=== PATIENT | male | born 1995 | race Two or more races ===

== ENCOUNTER 2024-02-09 15:00 | Emergency (ER) | payer SELFPAY ==
[~2024-02-09] VITALS: Ht 172.7 cm; Wt 89.4 kg
[2024-02-09] MEDS ORDERED: IBUP-1456 PO (18:59)
[2024-02-09] MEDS: KETOROLAC TROMETH 60MG/2ML VIAL IM ONE (19:22)
[2024-02-09 20:15] VITALS: BP 129/86; PULSE 78; RESP 19; TEMP 97.6; O2SAT 98
== END 2024-02-09 20:17 | disposition home or self-care (01) ==
LOC: ER 15:00
DX: S62.390A Other fracture of second metacarpal bone, right hand, initial encounter for closed fracture (principal); Z79.1 Long term (current) use of non-steroidal anti-inflammatories (NSAID); W51.XXXA Accidental striking against or bumped into by another person, initial encounter; Y93.89 Activity, other specified; Y92.89 Other specified places as the place of occurrence of the external cause; Y99.8 Other external cause status
CPT/HCPCS: 29125; 73130; 96372; 99283; J1885